=== PATIENT | female | born 1990 | race Caucasian/White ===

== ENCOUNTER 2023-01-09 11:30 | Emergency (ER) | payer BC ==
[2023-01-09] MEDS ORDERED: fentaNYL 50 MCG/ML SDV IVPUSH ONE ×2 (12:00→14:36)
[2023-01-09] MEDS ORDERED: Ondansetron 4 MG/2 ML SDV IVPUSH ONE ×2 (12:06→14:50)
[2023-01-09] MEDS ORDERED: Sodium Chloride 0.9% 10 ML Syringe FLUSH ONE (12:14)
[2023-01-09] MEDS ORDERED: Iopamidol 612 MG/ML 100 ML Bottle IV SCH (12:15)
[2023-01-09] MEDS ORDERED: Sodium Chloride 0.9% 50 ML IV SCH (12:15)
[2023-01-09 12:24] LABS: ESTIMATED GFR 62 mL/min (>60)
[2023-01-09] MEDS ORDERED: Ketorolac 30 MG/ML SDV IVPUSH ONE (14:50)
== END 2023-01-09 15:30 | disposition home or self-care (01) ==
LOC: JP.ED 11:30
DX: N83.201 Unspecified ovarian cyst, right side (principal); Z91.018 Allergy to other foods; Z86.16 Personal history of COVID-19
CPT/HCPCS: 36415; 74177; 76856; 80053; 85025; 96374; 96375; 96376; 99284; J1885; J2405; J3010; J3490; Q9967; 99283